=== PATIENT | female | born 1960 | race Caucasian/White ===

== ENCOUNTER → 2017-06-04 | Outpatient (CLI) | payer OTHER ==
[2016-07-11 09:51] VITALS: BP 115/48
[~2017-06-04] MED LIST: ALLO300T PO; ASPI-482 PO; ATOR20TA58 PO; CETI10TA22 PO; CHLO25TA PO; CHOL500016 PO; CINN500C2 PO; DOCU-109 PO; DOXY100C2 PO; FLUT16SP NS; METF-620 PO; METF500T4 PO; METO-239 AD; MULT-208 PO; OLME20TA19 PO; OLME40TA12 PO; OMEG1CAP50 PO; OXYC-323 PO; VENTOLIN HFA18 GM INH; WARF7.5T48 PO
--- NOTE | 2017-06-04 14:20 | KCIC ---
DATE: 06/04/2017 EXAM: MAMMO KAUR SCREENING BILATERAL HISTORY: Routine screening COMPARISON: 05/04/2015 This study was interpreted with the benefit of Computerized Aided Detection (CAD). FINDINGS: Breast Density: SCATTERED The breast parenchyma shows scattered fibroglandular densities. Breast parenchyma level B. There are no dominant suspicious masses, suspicious microcalcifications or evidence of architectural distortion. Benign-appearing calcifications identified in the bilateral breasts. IMPRESSION: Benign findings BI-RADS CATEGORY: 2 BENIGN FINDING RECOMMENDED FOLLOW-UP: 12M 12 MONTH FOLLOW-UP PQRS compliance statement: Patient information was entered into a reminder system with a target due date 06/04/2018 for the next mammogram. Mammography is a sensitive method for finding small breast cancers, but it does not detect them all and is not a substitute for careful clinical examination. A negative mammogram does not negate a clinically suspicious finding and should not result in delay in biopsying a clinically suspicious abnormality. "Our facility is accredited by the [employer] Mammography [employer]."
== END | disposition home or self-care (01) ==
LOC: KCIC MAMMO 07:55
PROVIDERS: ATTEND Obstetrics & Gynecology
DX: Z12.31 Encounter for screening mammogram for malignant neoplasm of breast (principal)
CPT/HCPCS: 77063; G0202; 77067

== ENCOUNTER → 2018-07-07 | Outpatient (CLI) | payer OTHER ==
[2016-07-11 09:51] VITALS: BP 115/48
[~2018-07-07] MED LIST changes: -METF-620 PO; +METF10007 PO; +METF500T16 PO; -METF500T4 PO; +OLME20TA17 PO; -OLME20TA19 PO
--- NOTE | 2018-07-07 16:24 | KCIC ---
EXAM: Bilateral digital screening mammogram with tomosynthesis. HISTORY: 57-year-old female presents for screening mammography. TECHNIQUE: Full-field digital craniocaudal and mediolateral oblique 2D and 3D tomosynthesis images of both breasts are obtained for evaluation. Computer aided detection with [employer] software version 9.3 was applied. COMPARISON: 06/04/2017 and 05/04/2015 BREAST PARENCHYMAL DENSITY: Level B - Scattered fibroglandular densities. FINDINGS: There is nodularity within the superior lateral aspect of the right breast, new or increased compared to the prior study. There is no suspicious calcification or distortion within either breast. IMPRESSION: BI-RADS Category 0: Additional imaging needed. RECOMMENDATION: Further evaluation with a right breast sonogram is recommended to assess nodular densities within the superior lateral breast. If your mammogram demonstrates that you have dense breast tissue, which could hide abnormalities, and if you have other risk factors for breast cancer that have been identified, you might benefit from supplemental screening tests that may be suggested by your ordering physician. Dense breast tissue, in and of itself, is a relatively common condition. This information is not provided to cause undue concern, but rather to raise your awareness and to promote discussion with your physician regarding the presence of other risk factors, in addition to dense breast tissue. A report of your mammography results will be sent to you and your physician. You should contact your physician if you have any questions or concerns regarding this report. Mammography is a sensitive method for finding small breast cancers, but it does not detect them all and is not a substitute for careful clinical examination. A negative mammogram does not negate a clinically suspicious finding and should not result in delay in biopsying a clinically suspicious abnormality. PQRS compliance statement - Patient information was entered into a reminder system with a target due date for the next mammogram. "Our facility is accredited by the [employer] Mammography [employer]." Electronically signed by: Denice Hoff MD (07/07/2018 4:20 PM) [id number]
== END | disposition home or self-care (01) ==
LOC: KCIC MAMMO 14:37
PROVIDERS: ATTEND Obstetrics & Gynecology
DX: Z12.31 Encounter for screening mammogram for malignant neoplasm of breast (principal)
CPT/HCPCS: 77063; 77067

== ENCOUNTER → 2018-07-21 | Outpatient (CLI) | payer OTHER ==
[2016-07-11 09:51] VITALS: BP 115/48
--- NOTE | 2018-07-21 17:07 | KCIC ---
Right breast ultrasound: Reason for examination: Nodular densities on screening mammogram. Comparison is made to mammographic exam dated 07/07/2018. Ultrasound examination of the right breast was performed with attention to the upper outer quadrant and right axilla. At the 12:00 position 8 cm from the nipple, there is a hypoechoic circumscribed lesion measuring 7.8 mm in greatest dimension which appears represent a complex cyst. Further evaluation with aspiration/biopsy is recommended. In the 11:00 position 9 cm from the nipple, there is a 8.4 mm heterogeneous hypoechoic. Ultrasound-guided biopsy is recommended. In the 10:30 position 9 cm from the nipple, there is a complex lesion measuring 8.1 cm in size with cystic and solid component. This could represent an intracystic malignancy or papilloma. Ultrasound-guided biopsy is recommended. In the 10:00 position 11 cm from the nipple, there is a 6.1 mm hypoechoic lesion. Ultrasound-guided biopsy is recommended. No abnormal appearing lymph nodes are seen in the axilla. IMPRESSION: Multiple new solid complex heterogeneous appearing nodules in the right breast located at the 10:00, 10:30, 11:00 and 12:00 positions. These are all subcentimeter in size. Recommend ultrasound guided biopsies. BI-RADS Category 4: Suspicious. The patient was notified with these findings and was instructed to follow-up with her clinician. This report was called to the office of Dr. Ponce at 4:58 PM on 07/21/2018 and report was given to the nurse, Radha. "Our facility is accredited by the [employer] Mammography [employer]." This patient's information has been entered into a reminder system for the patient to be notified with the results of her examination and a target date for the next mammogram. Electronically signed by: Theodora Aguilera MD (07/21/2018 5:03 PM) [id number]
== END | disposition home or self-care (01) ==
LOC: KCIC US 11:20
PROVIDERS: ATTEND Obstetrics & Gynecology
DX: R92.8 Other abnormal and inconclusive findings on diagnostic imaging of breast (principal)
CPT/HCPCS: 76641